=== PATIENT | female | born 1960 | race African-American/Black ===

== ENCOUNTER 2018-01-09 18:32 | Emergency (ER) | payer MEDICARE, OTHER ==
[~2018-01-09] VITALS: Ht 160 cm; Wt 74.8 kg
[~2018-01-09 18:32] MED LIST: IBUPROFEN600 MG ORAL; INDOMETHACIN75 MG ORAL; PERCOCET 5-3251 EACH PO; TRAMADOL HCL50 MG ORAL; VALIUM5 MG PO
--- NOTE | 2018-01-09 19:08 | Emergency Room Report ---
History of Present Illness General Chief Complaint: Lower Extremity Injury Source: Patient (Ry Reilly) Present Illness HPI 57-year-old female patient presents ER complaining of right small toe pain status post injury today. Reports that she was vacuuming when she accidentally jammed her toe into the vacuum cleaner carpet and upholstery. Reports pain in her small baby toe. Reports pain with ambulation. States has not taken his medication. Also requesting wound check. Reports burned her left hale during November and got a fish skin transplant into the affected area. Reports has been followed up with artillery specialist since that time. Reports has follow-up appointment next Saturday. Reports noticed blister starting to form in the area a few days ago. Denies fever, chest pain, shortness of breath. states she takes Idamay for chronic pain. (Ry Reilly) Allergies: Coded Allergies: No Known Allergies (Unverified , 12/04/12) Patient History Past Medical History: see triage record Now: No Reviewed Nursing Documentation: PMH: Agreed; PSxH: Agreed (Ry Reilly) Nursing Documentation-PMH Past Medical History: No History, Except For (Ry Reilly) Review of Systems All Other Systems: negative except mentioned in HPI (Ry Reilly) Physical Exam Vital Signs Date Time Temp Pulse Resp B/P (MAP) Pulse Ox O2 Delivery O2 Flow Rate FiO2 01/09/18 18:35 98.0 98 20 130/75 94 98.1 Sp02 EP Interpretation: reviewed, normal General Appearance: well appearing, no apparent distress, alert, GCS 15, non- toxic Head: normocephalic, atraumatic Eyes: bilateral eye normal inspection, bilateral eye PERRL ENT: hearing grossly normal, normal pharynx, no angioedema, normal voice, uvula midline, moist mucus membranes Neck: full range of motion Respiratory: lungs clear, normal breath sounds, no rhonchi, no respiratory distress, no accessory muscle use, no wheezing, speaking full sentences Cardiovascular #1: regular rate, rhythm, no edema Cardiovascular #2: 2+ dorsalis pedis (R), 2+ dorsalis pedis (L) Musculoskeletal: back normal, digits/nails normal, gait/station normal, no calf tenderness, decreased range of motion - secondary to pain, Norma's Sign negative, swelling - right small toe, other - NVI, disocloration of 1/5 of nail at lateral border of small toe on right foot, no nail avulsion, cuticle intact, tender - right small toe Neurologic: alert, oriented x3, responsive, motor strength/tone normal, sensory intact Skin: other - 1 cm blister on the left hale, no blood-filled blister, no surrounding erythema or edema, healing skin wound (Ry Reilly) Medical Decision Making PA Attestation Dr. Grider is my supervising Physician whom patient management has been discussed with. (Ry Reilly) Diagnostic Impression: Primary Impression: Toe fracture ER Course Pt. presents to the ED c/o right small toe pain. Ddx considered but are not limited to fracture, sprain, strain, contusion, dislocation. No erythema, no warmth to touch, no fever, nontoxic appearing, low suspicion for septic joint. Vital signs: are WNL, pt. is afebrile Ordered X-ray and pain medication. ER COURSE Provided with pain medication. Small amount of discoloration noted in right small toe toenail, no nail avulsion injury, do not believe patient requires trephination at this time. An X-ray of the right foot shows fracture of the proximal phalanx of the right small toe per the preliminary reading. Kaveh taped toes and opened shoe applied to small toe and was checked afterwards by me showing good alignment and support with distal neurovascular functioning intact. Crutches provided. Patient instructed on RICE method: rest, ice, compression, elevation. Patient instructed on rest, ice and heat. Patient instructed to be NWB. Contact information for orthopedic urgent care provided, follow-up with urgent care if unable to followup with primary care provider and get referral to insurance marketing specialist. contact information for family life counselor. Followup with primary care provider. Discuss referral to ortho/pain management/ PT as needed. Discuss further imaging with MRI/CT as needed. wound on left hale appears to be healing well, no surrounding erythema or edema , checked patient not to pop blister, follow with primary care provider DISCHARGE: -Rx provided for Tylenol for pain symptoms. At this time pt. is stable for d/c to home. Patient is resting comfortably, in no acute distress, nontoxic appearing, talking without difficulty. Will provide printed patient care instructions, and any necessary prescriptions. Patient instructed to follow with primary care provider in 3 - 5 days and to request further follow-up as needed. Care plan and follow up instructions have been discussed with the patient prior to discharge. Take medications as directed. Patient questions asked and answered. Patient reports understanding and agreement to treatment plan. ER precautions given, patient instructed to return to ER immediately for any new or worsening of symptoms. - Please note that this Emergency Department Report was dictated using [employer] technician technology software, occasionally this can lead to erroneous entry secondary to interpretation by the dictation equipment. (Ry Reilly) Other X-Ray Diagnostic Results Other X-Ray Diagnostic Results : X-Ray ordered: right foot # of Views/Limited Vs Complete: 3 View Indication: Pain EP Interpretation: Yes PA Xray: Interpretation reviewed, by supervising MD, and agrees with findings. Interpretation: no dislocation, no soft tissue swelling, other - fracture of proximal phalanx of right small toe, minimal displacement Impression: Other - fracture PA Scribe Text Darrian Reilly PA-C (Ry Reilly) Other X-Ray Diagnostic Results : Electronically Signed by: Scribe documentation reviewed by me and is accurate, Gurmeet Grider MD. (Gurmeet Grider M.D.) Last Vital Signs Date Time Temp Pulse Resp B/P (MAP) Pulse Ox O2 Delivery O2 Flow Rate FiO2 01/09/18 18:35 98.0 98 20 130/75 94 98.1 (Ry Reilly) Disposition: HOME, SELF-CARE Condition: Stable Scripts Acetaminophen* (TYLENOL EXTRA STRENGTH*) 500 Mg Tablet 500 MG ORAL Q8H PRN for Prn Headache/Temp > 101, #30 TAB 0 Refills Prov: Ry Reilly 01/09/18 Patient Instructions: Toe Fracture, [id number] Additional Instructions: Patient instructed to follow up with primary care provider and discuss further referral to orthopedics. Patient instructed on RICE method: rest, ice, compression, elevation. Patient instructed to NWB. Take medications as directed. Patient questions asked and answered. ER precautions given, patient instructed to return to ER immediately for any new or worsening of symptoms. Ry Reilly Jan 09, 2018 19:08 Gurmeet Grider M.D. Jan 11, 2018 15:00
[2018-01-09] MEDS ORDERED: Acetaminophen 500mg (ES) tab ORAL ONE (19:15)
[2018-01-09] MEDS ORDERED: Nail Polish Remover TOPIC SCH (19:17)
[2018-01-09] MEDS ORDERED: TYLENOL EXTRA500 MG ORAL (20:32)
[2018-01-09 21:01] VITALS: BP 130/75
--- NOTE | 2018-01-10 10:14 | Diagnostic Imaging Report ---
Indication: Right foot pain Technique: 3 views right foot Comparison: none Findings: There is a metallic toe ring on the right second toe which could obscure pathology. There is a comminuted largely oblique fracture of the fifth proximal phalanx which is nondisplaced. No other acute fractures. No dislocations. The joint spaces are preserved. There are small plantar and calcaneal spurs Impression: Positive for right fifth proximal phalangeal fracture This agrees with the conclusions of the ED physician reported in the electronic medical record
== END 2018-01-09 21:03 | disposition home or self-care (01) ==
LOC: EMR 19:37
DX: S92.511A Displaced fracture of proximal phalanx of right lesser toe(s), initial encounter for closed fracture (principal); W23.0XXA Caught, crushed, jammed, or pinched between moving objects, initial encounter; Y93.E3 Activity, vacuuming; Y92.019 Unspecified place in single-family (private) house as the place of occurrence of the external cause
CPT/HCPCS: 99283